=== PATIENT | male | born 1970 | race African-American/Black ===

== ENCOUNTER 2025-07-30 13:27 | Emergency (ER) | payer BC ==
[2025-07-30 14:22] LABS: MEAN PLATELET VOLUME 11.3 fL (9.4-12.4); NRBC ABSOLUTE 1.10 K/uL (0.00-0.02); RED BLOOD CELL COUNT 1.91 M/uL (4.52-5.90); WHITE BLOOD CELL COUNT,WBC 5.00 K/uL (3.9-11.3)
[2025-07-30 14:34] LABS: INR 1.08 (0.86-1.11)
[2025-07-30 14:39] LABS: NRBC PERCENT 22.0 /100WBC (0.0-0.2); PLATELET COUNT,PLT 23 K/uL (150-400)
[2025-07-30 14:47] LABS: A/G RATIO 0.8 (0.9-1.6); ALANINE AMINOTRANSFERASE,ALT 18.0 IU/L (14-63); ASPARTATE AMNIOTRANSFERASE,AST 73.0 IU/L (15-37); BILIRUBIN TOTAL 0.3 mg/dL (0.2-1.0); BLOOD UREA NITROGEN,BUN 12.0 mg/dL (7.0-18.0); CARBON DIOXIDE,CO2 22.8 mmol/L (21.0-32.0); CHLORIDE,CL 103.0 mmol/L (98-107); CREATININE 0.9 mg/dL (0.8-1.3); EST CRCL DRUG DOSING (CG) 72.41 mL/min; GLUCOSE RANDOM 174.0 mg/dL (74-106); POTASSIUM,K 3.8 mmol/L (3.5-5.1); PROTEIN TOTAL,TP 6.7 g/dL (6.4-8.2); SODIUM,NA 138.0 mmol/L (136-148)
[2025-07-30 14:49] LABS: BAND ABSOLUTE MAN 0.15; BAND PERCENT MAN 3 %; BASOPHILS ABSOLUTE MAN 0.05 K/uL (0.00-0.20); BASOPHILS PERCENT MAN 1 % (0-1); LYMPHOCYTES ABSOLUTE MAN 1.65 K/uL (1.00-4.80); LYMPHOCYTES PERCENT MAN 33 % (24-44); METAMYELOCYTE ABSOLUTE MAN 0.05; METAMYELOCYTE PERCENT MAN 1 %; MONOCYTES ABSOLUTE MAN 0.30 K/uL (0.00-0.80); MONOCYTES PERCENT MAN 6 % (0-8); MYELOCYTE ABSOLUTE MAN 0.10; MYELOCYTE PERCENT MAN 2 %; SEG NEUTROPHILS ABSOLUTE MAN 2.70 K/uL (1.80-7.70); SEG NEUTROPHILS PERCENT MAN 54 % (41-71)
[2025-07-30 14:53] LABS: ESTIMATED GFR 101.0 mL/min (>60)
[2025-07-30 14:55] LABS: PLATELET COUNT ESTIMATE MARKED DEC
[2025-07-30] MEDS: Iopamidol 755 MG/ML 500 ML Multipack Bottle IVPUSH STA (16:08)
== END 2025-07-30 20:31 ==
LOC: MW.ED 13:27
DX: D69.6 Thrombocytopenia, unspecified (principal); D63.8 Anemia in other chronic diseases classified elsewhere; C79.51 Secondary malignant neoplasm of bone; I10 Essential (primary) hypertension; Z75.3 Unavailability and inaccessibility of health-care facilities
CPT/HCPCS: 36415; 36430; 71045; 71260; 74177; 80053; 85025; 85610; 85730; 86850; 86900; 86901; 86920; 99285; P9016; Q9967; 99284

== ENCOUNTER 2025-08-21 15:37 | Emergency (ER) | payer BC ==
[2025-08-21] MEDS ORDERED: Sodium Chloride 0.9% 2.5 ML Syringe FLUSH PRN ×2 (16:06→16:44)
[2025-08-21] MEDS ORDERED: Sodium Chloride 0.9% 10 ML Syringe FLUSH PRN ×2 (16:06→16:44)
[2025-08-21 16:33] LABS: MEAN PLATELET VOLUME 10.4 fL (9.4-12.4); NRBC ABSOLUTE 0.18 K/uL (0.00-0.02); NRBC PERCENT 5.3 /100WBC (0.0-0.2); PLATELET COUNT,PLT 15 K/uL (150-400); RED BLOOD CELL COUNT 1.66 M/uL (4.52-5.90); WHITE BLOOD CELL COUNT,WBC 3.40 K/uL (3.9-11.3)
[2025-08-21 16:47] LABS: INR 1.09 (0.86-1.11)
[2025-08-21 16:51] LABS: A/G RATIO 0.7 (0.9-1.6); ALANINE AMINOTRANSFERASE,ALT 14 IU/L (14-63); ASPARTATE AMNIOTRANSFERASE,AST 67 IU/L (15-37); BILIRUBIN TOTAL 0.3 mg/dL (0.2-1.0); BLOOD UREA NITROGEN,BUN 10 mg/dL (7.0-18.0); CARBON DIOXIDE,CO2 22.0 mmol/L (21.0-32.0); CHLORIDE,CL 105 mmol/L (98-107); CREATININE 0.6 mg/dL (0.8-1.3); ESTIMATED GFR 114 mL/min (>60); GLUCOSE RANDOM 128 mg/dL (74-106); POTASSIUM,K 3.7 mmol/L (3.5-5.1); PROTEIN TOTAL,TP 6.5 g/dL (6.4-8.2); SODIUM,NA 138 mmol/L (136-148)
[2025-08-21 17:08] LABS: BAND ABSOLUTE MAN 0.20; BAND PERCENT MAN 6 %; EOSINOPHILS ABSOLUTE MAN 0.03 K/uL (0.00-0.45); EOSINOPHILS PERCENT MAN 1 % (0-6); LYMPHOCYTES ABSOLUTE MAN 1.33 K/uL (1.00-4.80); LYMPHOCYTES PERCENT MAN 39 % (24-44); METAMYELOCYTE ABSOLUTE MAN 0.03; METAMYELOCYTE PERCENT MAN 1 %; MONOCYTES ABSOLUTE MAN 0.24 K/uL (0.00-0.80); MONOCYTES PERCENT MAN 7 % (0-8); SEG NEUTROPHILS ABSOLUTE MAN 1.56 K/uL (1.80-7.70); SEG NEUTROPHILS PERCENT MAN 46 % (41-71)
[2025-08-21 17:09] LABS: PLATELET COUNT ESTIMATE MARKED DEC; TSH ULTRASENSITIVE 1.03 uIU/mL (0.36-3.74)
[2025-08-21 18:54] LABS: IRON,FE 48.0 ug/dL (50-175); PERCENT FE SATURATION 29.81 % (20-55)
[2025-08-21 21:26] LABS: APPEARANCE,URINE CLEAR; GLUCOSE,URINE NEGATIVE (NEGATIVE); OCCULT BLOOD,URINE NEGATIVE (NEGATIVE)
[2025-08-22 01:09] LABS: MEAN PLATELET VOLUME 9.1 fL (9.4-12.4); NRBC ABSOLUTE 0.27 K/uL (0.00-0.02); NRBC PERCENT 6.8 /100WBC (0.0-0.2); PLATELET COUNT,PLT 10 K/uL (150-400); RED BLOOD CELL COUNT 3.67 M/uL (4.52-5.90); WHITE BLOOD CELL COUNT,WBC 3.98 K/uL (3.9-11.3)
[2025-08-22 01:48] LABS: BAND ABSOLUTE MAN 0.16; BAND PERCENT MAN 4 %; LYMPHOCYTES ABSOLUTE MAN 1.59 K/uL (1.00-4.80); LYMPHOCYTES PERCENT MAN 40 % (24-44); METAMYELOCYTE ABSOLUTE MAN 0.16; METAMYELOCYTE PERCENT MAN 4 %; MONOCYTES ABSOLUTE MAN 0.36 K/uL (0.00-0.80); MONOCYTES PERCENT MAN 9 % (0-8); SEG NEUTROPHILS ABSOLUTE MAN 1.71 K/uL (1.80-7.70); SEG NEUTROPHILS PERCENT MAN 43 % (41-71)
== END 2025-08-22 06:45 | disposition home or self-care (01) ==
LOC: MW.ED 15:37
DX: D64.9 Anemia, unspecified (principal); D61.818 Other pancytopenia; E61.1 Iron deficiency; C61 Malignant neoplasm of prostate; C78.00 Secondary malignant neoplasm of unspecified lung; Z51.11 Encounter for antineoplastic chemotherapy; Z79.899 Other long term (current) drug therapy
CPT/HCPCS: 36415; 36430; 71045; 80053; 81003; 82728; 83550; 83615; 83735; 83880; 84443; 84484; 85014; 85018; 85025; 85610; 85730; 86850; 86900; 86901; 86920; 87428; 93005; 99284; P9016; 93010